=== PATIENT | female | born 1995 | race Caucasian/White ===

== ENCOUNTER 2018-10-31 10:33 | Outpatient (CLI) | payer MEDICAID, SELFPAY ==
[2018-11-01 10:38] LABS: HIV-1/2 Ag & Ab Screen Negative (NEGAT)
[2018-11-03 09:40] LABS: Hepatitis B Surface Ag Negative (NEGAT)
[2018-11-03 09:49] LABS: Hepatitis C Ab w Rflx HCV PCR Negative (NEGAT)
[2018-11-03 12:43] LABS: Syphilis Serology (RPR) Negative (Negative)
== END 2018-10-31 10:53 ==
PROVIDERS: PCP Student in an Organized Health Care Education/Training Program; Visit Provider Nurse Practitioner Family
DX: Z11.3 Encounter for screening for infections with a predominantly sexual mode of transmission (principal); Z01.84 Encounter for antibody response examination; Z11.4 Encounter for screening for human immunodeficiency virus [HIV]; Z11.59 Encounter for screening for other viral diseases
CPT/HCPCS: 36415; 86803; 87340; 87389; 86592

== ENCOUNTER 2018-10-31 11:08 | Outpatient (REF) | payer MEDICAID, SELFPAY ==
--- NOTE | 2018-10-31 10:25 | PAPFT_PTH ---
PATIENT: Rocio Rivera LOC: [facility] U#:[id number] AGE/SX: 23/F ROOM: RE10/31/[address]: ANGELO Dorman : 1995 BED: DIS: 10/31/2018 SPEC #: [id number] RECD: 10/31/18 12:40 STATUS: NEERU REQ #: [id number] NOA: 10/31/18 10:[address]: Lena Madsen DEPT: [facility] Cytology RECD BY: Mita Campo ENTERED: 10/31/18 12:41 SP TYPE: PAPFT OTHR DR: Barbara Rollins DO Tissues: 1 - CX/ENDOCX FOR PAP SMEARS Procedures: PAP THIN PREP/UVM Screening Comments: [id number]
[2018-11-03 14:37] LABS: Chlamydia Result Negative; GC Result Negative; Specimen Description CERVIX
== END 2018-10-31 11:28 ==
LOC: LBN 11:08
PROVIDERS: PCP Student in an Organized Health Care Education/Training Program; Visit Provider Nurse Practitioner Family
DX: Z11.3 Encounter for screening for infections with a predominantly sexual mode of transmission (principal); Z12.4 Encounter for screening for malignant neoplasm of cervix
CPT/HCPCS: 87491; 87591; 88142

== ENCOUNTER 2018-12-21 16:48 | Emergency (ER) | payer MEDICAID, SELFPAY ==
[2018-12-21 17:00] VITALS: BP 114/86; PULSE 100; RESP 18; TEMP 36.8; O2SAT 98
[2018-12-21] MEDS: Amoxicillin 875/Clav. 125 TAB (17:15)
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
[2018-12-21 17:35] VITALS: BP 120/74; PULSE 90; RESP 18; TEMP 37; O2SAT 100
== END 2018-12-21 17:45 | disposition home or self-care (01) ==
PROVIDERS: Emergency Provider Student in an Organized Health Care Education/Training Program
DX: K08.89 Other specified disorders of teeth and supporting structures (principal); G89.18 Other acute postprocedural pain; Y84.8 Other medical procedures as the cause of abnormal reaction of the patient, or of later complication, without mention of misadventure at the time of the procedure
CPT/HCPCS: 64402

== ENCOUNTER 2019-03-08 18:04 | Emergency (ER) | payer MEDICAID, SELFPAY ==
[2019-03-08 18:17] VITALS: BP 119/73; PULSE 95; RESP 18; TEMP 36.9; O2SAT 98
[2019-03-08] MEDS: Normal Saline 1,000 ML 1000 ML IV (18:56)
[2019-03-08 19:09] LABS: Abs Immature Grans 0.01 k/cumm (0.0-0.09); Absolute Basophil Count 0.05 k/cumm (0.0-0.2); Absolute Eosinophil Count 0.63 k/cumm (0.0-0.7); Absolute Lymphocyte Count 2.63 k/cumm (1.2-3.4); Absolute Monocyte Count 0.78 k/cumm (0.11-0.7); Absolute Neutrophil Count 4.14 k/cumm (1.2-6.7); Basophils % 0.6; Eosinophils % 7.6; HCT 40.8 % (36.0-46.0); Immature Grans % 0.1; Lymphocytes % 31.9; Mean Corp. HGB Concentration 34.3 g/dL (32.0-36.0); Mean Corpuscular Hemoglobin 31.5 pg (27.0-33.0); Mean Corpuscular Volume 91.7 fL (80-95); Mean Platelet Volume 9.7 fL (8.0-11.0); Monocytes % 9.5; Neutrophils % 50.3; Platelet Count 244 x1000/uL (130-400); RBC 4.45 m/cumm (4.00-5.20); RBC Distribution Width 11.7 % (11.7-14.6); White Blood Cell Count 8.24 k/cumm (4.4-10.8)
[2019-03-08 19:17] LABS: ALT 23 U/L (12-78); AST 12 U/L (15-37); Albumin 4.3 g/dL (3.4-5.0); Alkaline Phosphatase 41 U/L (46-116); Anion Gap 11.6 mmol/L (3-11); BUN 8 mg/dL (7-18); Bilirubin, Total 0.3 mg/dL (0.2-1.0); CO2 24.4 mmol/L (21.0-32.0); CREATININE 0.57 mg/dL (0.55-1.02); Calcium 9.2 mg/dL (8.5-10.1); Chloride 104 mmol/L (98-107); Glucose 79 mg/dL (70-100); Magnesium 2.1 mg/dL (1.8-2.4); Potassium 3.9 mmol/L (3.5-5.1); Sodium 140 mmol/L (136-145); Total Protein 7.9 g/dL (6.4-8.2)
--- NOTE | 2019-03-08 19:19 | ED.GENADUL_ITS ---
Discharge Plan Disposition Patient Disposition: HOME Condition: Stable Discharge Details Chief Complaint: Nausea/Vomit/Diar Clinical Impression: Near syncope, Heat exhaustion Primary Care Provider: Barbara Rollins ED Provider: Ubaldo Garcia Home Meds and New Rx's Prescriptions: No Action citalopram 40 mg tablet 40 mg PO DAILY RF: 0 prazosin 2 mg capsule 2 mg PO QHS RF: 0 lamotrigine [Lamictal] 25 mg tablet 100 mg PO DAILY RF: 0 antihistamine PO DAILY RF: 0 albuterol sulfate [ProAir HFA] 90 mcg/actuation HFA aerosol inhaler 2 puff IH Q6H PRN (Reason: shortness of breath or wheezing) Qty: 8.5 RF: 2 ibuprofen 400 mg Tablet 400 mg PO PRN PRNRF: 0 Discharge Instructions Instructions: Near Syncope (ED) Referrals: Barbara Rollins DO [Primary Care Provider] - Medical Decision Making 24-year-old female with near syncope mild nausea with history and physical most consistent with heat exhaustion versus less likely arrhythmogenic syncope or traumatic etiology patient with a normal physical exam normal vital signs will check basic labs creatinine kinase EKG IV fluids and observe in the emergency department. EKG: Sinus rhythm 85 normal axis no ectopy normal intervals no STEMI QTC 440 no epsilon wave no LVH. Labs unremarkable patient hydrated tolerating p.o. we will discharge with early PCP follow-up and strict return for repeat near syncope or syncope weakness shortness of breath chest pain or other concern HPI 24-year-old female past medical history of PTSD on citalopram Lamictal presents status post near syncopal episode earlier today patient at [employer] all day working some fluids but felt weak Skating short time later slipped and fell landing on her buttocks no head trauma few minutes after the fall patient felt weak sweaty and almost passed out symptoms resolved after a few minutes leaving patient feeling hot mildly nauseous no shortness of breath no chest pain. No fever chills vomiting diarrhea General Date/Time Provider Initiated Documentation: 03/08/19 18:49 . Related Data Home Medications Medication Instructions Recorded Confirmed citalopram 40 mg tablet 40 mg PO DAILY 10/31/18 03/08/19 prazosin 2 mg capsule 2 mg PO QHS 10/31/18 03/08/19 ibuprofen 400 mg PO PRN PRN 12/21/18 03/08/19 albuterol sulfate 90 mcg/actuation 2 puff IH Q6H PRN #8.5 gm 02/06/19 03/08/19 aerosol inhaler antihistamine PO DAILY 02/06/19 02/20/19 lamotrigine 25 mg tablet 100 mg PO DAILY tab 02/06/19 03/08/19 Previous Rx's Medication Instructions Recorded albuterol sulfate 90 mcg/actuation 2 puff IH Q6H PRN #8.5 gm 02/06/19 aerosol inhaler Allergies Allergy/AdvReac Type Severity Reaction Status Date / Time No Known Allergies Allergy Verified 03/08/19 18:21 General Stated Complaint: Nausea/Vomit/Diar ÁNGEL: 3 Review of Systems Review of Systems All systems reviewed & are unremarkable except as noted in HPI and below PFSH Social History Smoking/Tobacco Use Status: Never Alcohol Intake: current Alcohol Intake frequency: a few times a week Alcohol type: hard liquor Drug use: Socially Substance use type: marijuana Household members: none Housing: apartment Number of Children: 0 Communication Needs: Corrective Lenses Education Level: college Details: one semenster left for BS degree 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 Pets and animals: Yes Pets and animals: cat(s) and other Details: snails What type of physical activity do you participate in: none Seatbelt use: always Drive 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 well appearing. oriented to person, place, and time. Eyes: conjunctivae are normal. Pupils are equal, round, and reactive to light. No scleral icterus. extraocular muscles are intact Ears/Nose/Mouth/Throat: muscousal membranes are moist. Musculoskeletal: neck is supple. normal range of motion in all extremities. Cardiovascular: Normal rate and rhythm. No lower extremity edema regular rate and rhythm no murmurs gallops or rubs Respiratory: effort is normal. no stridor or respiratory distress. Lungs clear to auscultation bilaterally GastrointestinaI: abdomen soft, +BS, nontender, -rebound, -guarding. Neurological: alert and oriented to person, place, and time. normal strength, no tremor. Skin: Skin is warm and dry. not diaphoretic. Distal perfusion intact, warm extremities, cap refill < 2 seconds. Hem/Lymph/Imm: No cervical LAD, no goiter, no conjunctival pallor Psych: normal mood and affect. behavior is normal Triage and nurse notes reviewed. Course Vital Signs Temperature 36.9 C 03/08/19 18:17 Pulse 95 H 03/08/19 18:17 Respiratory Rate 18 03/08/19 18:17 Blood Pressure 119/73 03/08/19 18:17 Pulse Oximetry 98 03/08/19 18:17 Temperature 36.9 C 03/08/19 18:17 Temperature Source Skin 03/08/19 18:17 Pulse 95 H 03/08/19 18:17 Respiratory Rate 18 03/08/19 18:17 Respiratory Effort Non-Labored 03/08/19 18:20 Blood Pressure 119/73 03/08/19 18:17 Pulse Oximetry 98 03/08/19 18:17 Pain Level 7 03/08/19 18:17 Lab/Test Results Lab/Test Results: Laboratory Tests Range/Units 03/08/19 03/08/19 18:52 18:52 WBC (4.4-10.8) k/cumm 8.24 RBC (4.00-5.20) m/cumm 4.45 Hgb (12.0-15.5) g/dL 14.0 Hct (36.0-46.0) % 40.8 MCV (80-95) fL 91.7 MCH (27.0-33.0) pg 31.5 MCHC (32.0-36.0) g/dL 34.3 RDW (11.7-14.6) % 11.7 Plt Count (130-400) x1000/uL 244 MPV (8.0-11.0) fL 9.7 Immature Gran % 0.1 Neutrophils % 50.3 Lymphocytes % 31.9 Monocytes % 9.5 Eosinophils % 7.6 Basophils % 0.6 Absolute Neutrophils (1.2-6.7) k/cumm 4.14 Absolute Lymphocytes (1.2-3.4) k/cumm 2.63 Absolute Monocytes (0.11-0.7) k/cumm 0.78 H Absolute Eosinophils (0.0-0.7) k/cumm 0.63 Absolute Basophils (0.0-0.2) k/cumm 0.05 Sodium (136-145) mmol/L 140 Potassium (3.5-5.1) mmol/L 3.9 Chloride (98-107) mmol/L 104 Carbon Dioxide (21.0-32.0) mmol/L 24.4 Anion Gap (3-11) mmol/L 11.6 H BUN (7-18) mg/dL 8 Creatinine (0.55-1.02) mg/dL 0.57 Estimated GFR/1.73 m2 (mL/min/1.73m2) >= 60.00 Glucose (70-100) mg/dL 79 Calcium (8.5-10.1) mg/dL 9.2 Magnesium (1.8-2.4) mg/dL 2.1 Total Bilirubin (0.2-1.0) mg/dL 0.3 AST (15-37) U/L 12 L ALT (12-78) U/L 23 Alkaline Phosphatase (46-116) U/L 41 L Total Protein (6.4-8.2) g/dL 7.9 Albumin (3.4-5.0) g/dL 4.3
[2019-03-08] MEDS: Ondansetron O.D.T. 4 MG TABEF PO (19:32)
[2019-03-08] MEDS: DEXTROSE 5%-0.9% SALINE 1,000 ML 1000 ML IV (19:48)
[2019-03-08 19:49] LABS: Creatine Kinase 87 U/L (26-192)
[2019-03-08 21:17] VITALS: BP 118/58; PULSE 85; RESP 16; TEMP 36.8; O2SAT 98
== END 2019-03-08 21:18 | disposition home or self-care (01) ==
PROVIDERS: Emergency Provider Emergency Medicine; PCP Student in an Organized Health Care Education/Training Program
DX: R55 Syncope and collapse (principal); T67.5XXA Heat exhaustion, unspecified, initial encounter; X30.XXXA Exposure to excessive natural heat, initial encounter
CPT/HCPCS: 36415; 80053; 81025; 82550; 93005; 96360; 96361; 99284; 83735; 85025; 93010; 99285; J7042

== ENCOUNTER 2019-06-06 07:38 | Emergency (ER) | payer MEDICAID, SELFPAY ==
[2019-06-06 07:48] VITALS: BP 125/77; PULSE 96; RESP 18; TEMP 36.8; O2SAT 97
--- NOTE | 2019-06-06 08:04 | W.ED.GENAD ---
Discharge Plan Disposition Patient Disposition: HOME Condition: Stable Discharge Details Chief Complaint: Sorethroat Clinical Impression: Acute streptococcal pharyngitis Primary Care Provider: Barbara Rollins ED Provider: Lyndon Arrieta [place] Meds and New Rx's Prescriptions: New amoxicillin 500 mg capsule 500 mg PO BID Qty: 19 RF: 0 Continued citalopram 40 mg tablet 40 mg PO DAILY RF: 0 prazosin 2 mg capsule 2 mg PO QHS RF: 0 lamotrigine [Lamictal] 25 mg tablet 100 mg PO DAILY RF: 0 antihistamine PO DAILY RF: 0 albuterol sulfate [ProAir HFA] 90 mcg/actuation HFA aerosol inhaler 2 puff IH Q6H PRN (Reason: shortness of breath or wheezing) Qty: 8.5 RF: 2 fluticasone propion-salmeterol [Advair Diskus] 250-50 mcg/dose blister with device 1 inh IH BID Qty: 60 RF: 5 (DME) compressor, for nebulizer Device See Rx Instructions .ROUTE .MEDSUPPLY Qty: 1 RF: 0 levalbuterol HCl 1.25 mg/0.5 mL solution for nebulization 1.25 mg IH Q1-4H PRN (Reason: shortness of breath or wheezing) Qty: 30 RF: 1 albuterol sulfate 2.5 mg /3 mL (0.083 %) solution for nebulization 2.5 mg IH QID PRN (Reason: shortness of breath or wheezing) Qty: 90 RF: 0 ibuprofen 400 mg Tablet 400 mg PO PRN PRNRF: 0 Discharge Instructions Instructions: Pharyngitis (ED) Additional Instructions: take 1000mg tylenol and 600mg ibuprofen every 6 hours as needed if not better within a week see your primary care provider if unable to swallow any liquids, difficulty breathing or if you feel more ill return to the emergency department for reevaluation Medical Decision Making 24 yo female comes in with one week of sore throat and subjective fevers and body aches. Denies recent travel, dyspnea or difficulty swallowing. On exam she does appear dehydrated with dry mucous membranes. HAs posterior pharynx erythema and exudates. Midline uvula, no pain over hyoid and no restricted neck movements, no findings to suggest rpa, sea captain, epiglotitis or lemierres syndrome. Strep test is positive, will tx with amoxicillin. Will also give IVF as she does appear dehydrated pt tolerating po and feels much better, will d/c and return precautions given Differential Diagnosis Differential Diagnosis: strep, viral pharyngitis, rpa, sea captain, epiglotitis HPI General Mode of arrival: ambulatory. Date/Time Provider Initiated Documentation: 06/06/19 07:41. Limitations to Documentation: no limitations. Information obtained by: patient. History of Present Illness 24 year old F presents to the emergency department with the chief complaint of sore throat, described as moderate, Patient started experiencing this week(s) (1) and it has been constant. No relieving factors improve symptom(s), No exacerbating factors reported . Related Data Home Medications Medication Instructions Recorded Confirmed citalopram 40 mg tablet 40 mg PO DAILY 10/31/18 06/06/19 prazosin 2 mg capsule 2 mg PO QHS 10/31/18 06/06/19 ibuprofen 400 mg PO PRN PRN 12/21/18 06/06/19 albuterol sulfate 90 mcg/actuation 2 puff IH Q6H PRN #8.5 gm 02/06/19 06/06/19 aerosol inhaler antihistamine PO DAILY 02/06/19 04/01/19 lamotrigine 25 mg tablet 100 mg PO DAILY tab 02/06/19 06/06/19 compressor, for nebulizer #1 each 04/01/19 04/01/19 fluticasone 250 mcg-salmeterol 50 1 inh IH BID #60 each 04/01/19 06/06/19 mcg/dose blistr powdr for inhalation levalbuterol HCl 1.25 mg/0.5 mL 1.25 mg IH Q1-4H PRN #30 each 04/01/19 06/06/19 solution for nebulization albuterol sulfate 2.5 mg IH QID PRN #90 ml 04/02/19 06/06/19 amoxicillin 500 mg PO BID #19 cap 06/06/19 Previous Rx's Medication Instructions Recorded albuterol sulfate 90 mcg/actuation 2 puff IH Q6H PRN #8.5 gm 02/06/19 aerosol inhaler compressor, for nebulizer #1 each 04/01/19 fluticasone 250 mcg-salmeterol 50 1 inh IH BID #60 each 04/01/19 mcg/dose blistr powdr for inhalation levalbuterol HCl 1.25 mg/0.5 mL 1.25 mg IH Q1-4H PRN #30 each 04/01/19 solution for nebulization albuterol sulfate 2.5 mg IH QID PRN #90 ml 04/02/19 amoxicillin 500 mg PO BID #19 cap 06/06/19 Allergies Allergy/AdvReac Type Severity Reaction Status Date / Time No Known Allergies Allergy Verified 06/06/19 07:53 General Stated Complaint: Sorethroat ÁNGEL: 4 Review of Systems Review of Systems ROS Unobtainable: All systems reviewed & are unremarkable except as noted in HPI and below Cardiovascular Cardiovascular: Denies chest pain and Denies dyspnea Respiratory Respiratory: Denies cough and Denies dyspnea Gastrointestinal Gastrointestinal: Denies abdominal pain, Denies nausea and Denies vomiting Genitourinary Genitourinary: Denies dysuria Musculoskeletal Musculoskeletal: Denies joint swelling Integumentary/Breasts Skin/Breast: Denies rash Psychiatric Psychiatric: Denies depression Endocrine Endocrine: Denies heat intolerance [facility] Social History Smoking/Tobacco Use Status: Never Alcohol Intake: current Alcohol Intake frequency: a few times a week Alcohol type: hard liquor Drug use: Socially Substance use type: marijuana Household members: none Housing: apartment Number of Children: 0 Communication Needs: Corrective Lenses Education Level: college Details: one semenster left for BS degree 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 Pets and animals: Yes Pets and animals: cat(s) and other Details: snails What type of physical activity do you participate in: none Seatbelt use: always Drive intox or ride w/intox 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 Working smoke detector in home: Yes Fire extinguisher in home: Yes Carbon monox detector in home: Yes Do you feel safe at home: Yes Do you feel safe in your relationship?: No Victim of physical abuse: No Victim of emotional abuse: No Victim of sexual abuse: No Additional Social history: Goes to [facility] q 6 weeks Exam Const General: no acute distress Orientation: alert HENMT Head: normal to inspection Ears: external ears normal General nose exam: external nose normal Mouth: lip normal Eyes General: appearance normal, both eyes and all related structures Neck Neck: normal visual inspection Resp Effort & Inspection: normal respiratory effort and able to speak in complete sentences Cardio Rate: regular rate Skin General skin exam: no rashes or lesions noted Neuro General: alert and oriented x3 Extrem General: normal to inspection Psych Mental Status: mental status grossly normal Course Vital Signs Vital signs: Vital Signs Temperature 36.8 C 06/06/19 07:48 Pulse 96 H 06/06/19 07:48 Respiratory Rate 18 06/06/19 07:48 Blood Pressure 125/77 06/06/19 07:48 Pulse Oximetry 97 06/06/19 07:48 Temperature 36.8 C 06/06/19 07:48 Temperature Source Temporal Artery Scan 06/06/19 07:48 Pulse 96 H 06/06/19 07:48 Respiratory Rate 18 06/06/19 07:48 Respiratory Effort Non-Labored 06/06/19 07:52 Blood Pressure 125/77 06/06/19 07:48 Blood Pressure Position Sitting 06/06/19 07:48 Pulse Oximetry 97 06/06/19 07:48 Oxygen Delivery Method Room Air 06/06/19 07:48 Oxygen Flow Rate 0 06/06/19 07:48 Pain Level 8 06/06/19 07:48 Lab/Test Results Lab/Test Results: POC Strep Test-BERNARDA(Rapid) Start: 06/06/19 07:47 Freq: .Rapid Strep Test Status: Active Protocol: Document 06/06/19 07:52 SGL (Rec: 06/06/19 07:52 SGL [id number]) Strep test-BERNARDA(Rapid)-POC POC-Strep test-BERNARDA (Rapid) Positive POC-Strep test-BERNARDA (Rapid) Positive
[2019-06-06] MEDS: Normal Saline 1,000 ML 1000 ML IV (08:05)
[2019-06-06] MEDS: Ketorolac 15 MG/ML VIAL IVP (08:11)
[2019-06-06] MEDS: Dexamethasone 10 MG/ML VIAL IVP (08:12)
[2019-06-06] MEDS: Amoxicillin 500 MG CAP PO (08:13)
[2019-06-06 08:46] VITALS: BP 122/68; PULSE 92; RESP 16; TEMP 37; O2SAT 100
[2019-06-06 08:51] VITALS: BP 122/68; PULSE 92; RESP 16; TEMP 37; O2SAT 100
== END 2019-06-06 08:53 | disposition home or self-care (01) ==
PROVIDERS: Emergency Provider Emergency Medicine; PCP Student in an Organized Health Care Education/Training Program
DX: J02.0 Streptococcal pharyngitis (principal); E86.0 Dehydration
CPT/HCPCS: 87880; 96361; 96374; 96375; 99284; J1100; J1885

== ENCOUNTER 2019-07-29 12:04 | Emergency (ER) | payer MEDICAID, SELFPAY ==
[2019-07-29 12:08] VITALS: BP 133/84; PULSE 98; RESP 18; TEMP 36.4; O2SAT 98
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
== END 2019-07-29 13:32 | disposition home or self-care (01) ==
PROVIDERS: Emergency Provider Student in an Organized Health Care Education/Training Program; PCP Student in an Organized Health Care Education/Training Program
DX: R21 Rash and other nonspecific skin eruption (principal); R19.7 Diarrhea, unspecified
CPT/HCPCS: 99282

== ENCOUNTER 2021-11-21 16:24 | Outpatient (CLI) | payer MEDICAID, SELFPAY ==
--- NOTE | 2021-11-21 16:15 | RT.EKG_ITS ---
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
== END 2021-11-21 16:25 | disposition home or self-care (01) ==
LOC: DI.KIM 16:27
PROVIDERS: PCP Student in an Organized Health Care Education/Training Program; Visit Provider Student in an Organized Health Care Education/Training Program
DX: Z51.81 Encounter for therapeutic drug level monitoring (principal); Z79.899 Other long term (current) drug therapy
CPT/HCPCS: 93010

== ENCOUNTER 2022-08-14 08:32 | Outpatient (CLI) | payer MEDICAID, SELFPAY | END 2022-08-14 08:33 | disposition home or self-care (01) | LOC: CARDOPNVT 08:32 | PROVIDERS: PCP Student in an Organized Health Care Education/Training Program; Visit Provider Student in an Organized Health Care Education/Training Program | DX: I49.9 Cardiac arrhythmia, unspecified (principal) | CPT/HCPCS: 93246 ==

== ENCOUNTER 2022-09-10 13:25 | Outpatient (CLI) | payer MEDICAID, SELFPAY ==
--- NOTE | 2022-09-10 14:55 | W.CARDEVENT ---
Date of service: 09/10/22 Time of Service: 14:55 Cardiac Event Recorder Referring Provider:: Barbara Rollins Indications:: Palpitations Cardiac Event Note: This is a cardiac event monitor ordered for palpitations. Patient was monitored for 13 days 13 hours Rhythm throughout was sinus with an average heart rate of 98. Minimum was 66, maximum 187 There were no ventricular or supraventricular dysrhythmias There was no atrial fibrillation, no high-grade AV block, no pauses greater than 3 seconds Patient symptoms were reported. There were associated with sinus rhythm, rates ranging from 85-142
--- NOTE | 2022-09-11 12:04 | W.CARDEVENT ---
Date of service: 09/11/22 Time of Service: 12:04 Cardiac Event Recorder Referring Provider:: Barbara Rollins Indications:: Palpitations Cardiac Event Note: This is a 14-day cardiac event monitor, ordered for palpitations Rhythm throughout was sinus with an average heart rate of 98. Minimum was 66, maximum 187 There were no ventricular or supraventricular dysrhythmias, no high-grade AV block, no pauses greater than 3 seconds Patient symptoms were reported. These corresponded to sinus rhythm rates ranging from 87-1 72
== END 2022-09-10 13:26 | disposition home or self-care (01) ==
LOC: CARDOPNVT 13:25
PROVIDERS: PCP Student in an Organized Health Care Education/Training Program; Visit Provider Internal Medicine Cardiovascular Disease
DX: R00.2 Palpitations (principal)

== ENCOUNTER 2025-03-01 16:02 | Outpatient (REF) | payer MEDICAID, SELFPAY ==
[2025-03-01 16:57] LABS: HCT 41.5 % (36.0-46.0); HGB 13.6 g/dL (11.2-15.7); MCH 29.7 pg (27.0-33.0); MCHC 32.8 % (32.0-36.0); MCV 91 fL (80-95); MPV 10.3 fL (8.0-11.0); Platelet Count 265 10^3/uL (130-400); RBC 4.58 10^6/uL (3.93-5.22); RDW 11.9 % (11.7-14.6); RDW-SD 39.5 fL; WBC 6.53 10^3/uL (4.4-10.8)
[2025-03-01 17:10] LABS: Anion Gap 9.2 mmol/L (3-11); BUN 17 mg/dL (7-18); CO2 26.8 mmol/L (21.0-32.0); Calcium 9.1 mg/dL (8.5-10.1); Chloride 103 mmol/L (98-107); Estimated GFR 120.74 (mL/min/1.73m2); Glucose 122 mg/dL (74-106); Potassium 4.1 mmol/L (3.5-5.1); Sodium 139 mmol/L (136-145)
[2025-03-02 18:55] LABS: Hepatitis C Ab w Rflx HCV PCR Negative (Negative)
[2025-03-02 19:12] LABS: HIV-1/2 Ag & Ab Screen Negative (Negative)
== END 2025-03-01 16:03 | disposition home or self-care (01) ==
LOC: NCHCN 16:02
PROVIDERS: Visit Provider Nurse Practitioner Family
DX: F41.8 Other specified anxiety disorders (principal); Z11.59 Encounter for screening for other viral diseases; Z11.4 Encounter for screening for human immunodeficiency virus [HIV]
CPT/HCPCS: 80048; 85027; 86803; 87389

== ENCOUNTER 2025-06-23 20:16 | Outpatient (REF) | payer MEDICAID, SELFPAY ==
[2025-06-24 18:55] LABS: Hepatitis C Ab w Rflx HCV PCR Negative (Negative)
[2025-06-24 18:57] LABS: HIV-1/2 Ag & Ab Screen Negative (Negative)
[2025-06-24 19:00] LABS: Hep B Core Antibody Negative (Negative)
== END 2025-06-23 20:17 | disposition home or self-care (01) ==
LOC: LBN 20:16
PROVIDERS: Visit Provider Physician Assistant Medical
DX: W50.3XXA Accidental bite by another person, initial encounter (principal); T14.90XA Injury, unspecified, initial encounter
CPT/HCPCS: 86704; 86803; 87389

== ENCOUNTER 2025-07-09 19:54 | Emergency (ER) | payer MEDICAID, SELFPAY ==
[2025-07-09 19:58] VITALS: BP 132/77; PULSE 94; RESP 18; TEMP 36.3; O2SAT 98
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
[2025-07-09 22:49] VITALS: PULSE 72; RESP 18; O2SAT 98
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
== END 2025-07-09 22:49 | disposition home or self-care (01) ==
LOC: ER 07-10 12:03
PROVIDERS: Emergency Provider Registered Nurse Emergency
DX: Z13.39 Encounter for screening examination for other mental health and behavioral disorders (principal); R45.851 Suicidal ideations
CPT/HCPCS: 99283; 99285; 00123; 96127